=== PATIENT | male | born 1980 | race Caucasian/White ===

== ENCOUNTER 2023-02-28 08:29 | Inpatient (IN) | payer OTHER ==
[~2023-02-28] VITALS: Ht 170.2 cm; Wt 63.5 kg
[2023-02-28] MEDS ORDERED: ADENOSINE 3 MG/ML 2ML VIAL IV ONE (08:45)
[2023-02-28] MEDS ORDERED: AMIODARONE HCL 50MG/ML 3ML VIAL IV ONE (08:55)
[2023-02-28] MEDS ORDERED: AMIODARONE HCL 900 MG in DEXT 5% WATER 500 ML IV ONE (09:15)
[2023-02-28 09:16] LABS: BASOPHILS % 0.8 % (0.0-2.0); DIFFERENTIAL COMMENT 0; EOSINOPHILS % 1.8 % (0.0-5.0); HEMATOCRIT. 26.7 % (42.0-52.0); HEMOGLOBIN. 7.6 g/dL (14.0-18.0); LYMPHOCYTES % 20.5 % (20.0-50.0); MEAN CORPUSCULAR HEMOGLOBIN 21.6 pg (28.0-32.0); MEAN CORPUSCULAR HGB CONC 28.4 g/dL (31.0-37.0); MEAN CORPUSCULAR VOLUME 75.9 fL (80.0-94.0); MEAN PLATELET VOLUME 5.8 fl (7.4-10.4); MONOCYTES % 9.1 % (2.0-8.0); NEUTROPHILS % 67.8 % (40.0-76.0); PLATELET 964 x1000/uL (130-400); RED BLOOD CELL COUNT 3.52 mill/uL (4.7-6.1); RED CELL DISTRIBUTION WIDTH 19.4 % (11.6-14.6); WHITE BLOOD COUNT 13.7 x1000/uL (4.5-11.0)
[2023-02-28 09:44] LABS: ALANINE AMINOTRANSFERASE < 7 IU/L (10-49); ALBUMIN 3.1 g/dL (3.2-4.8); BILIRUBIN TOTAL 0.3 mg/dL (0.1-1.0); CALCIUM 8.5 mg/dL (8.7-10.4); CARBON DIOXIDE 24 mEq/L (21-32); CHLORIDE 103 mEq/L (98-107); CREATININE 0.7 mg/dL (0.6-1.3); GLUCOSE 113 mg/dL (70-105); POTASSIUM 3.6 mEq/L (3.5-5.1); SODIUM 137 mEq/L (136-145); UREA NITROGEN BLOOD 12 mg/dL (9-23)
[2023-02-28 09:52] LABS: ASPARTATE AMINOTRANSFERASE < 8 IU/L (<34)
[2023-02-28] MEDS ORDERED: NOREPINEPHRINE 8MG/250ML PMX 250 ML IV STA (11:09)
[2023-02-28] MEDS ORDERED: LIDOCAINE HCL 1% 10 MG/ML 10ML VIAL ONE ×2 (11:28→14:12)
[2023-02-28] MEDS ORDERED: DILTIAZEM HCL 5MG/ML 5ML VIAL IV ONE (11:45)
[2023-02-28] MEDS ORDERED: NOREPINEPHRINE 8MG/250ML PMX 250 ML IV PRN (20:17)
[2023-02-28] MEDS ORDERED: DOCUSATE SODIUM 100MG CAPSULE PO PRN (21:15)
[2023-02-28] MEDS ORDERED: ACETAMINOPHEN 325MG TABLET PO PRN ×2 (21:15)
[2023-02-28] MEDS ORDERED: CLONIDINE 0.1MG TABLET PO PRN (21:15)
[2023-02-28] MEDS ORDERED: ONDANSETRON HCL 4MG/2ML INJ IV PRN (21:15)
[2023-02-28] MEDS ORDERED: GUAIFENESIN 200MG/10ML SUGAR FREE UDC PO PRN (21:15)
[2023-02-28] MEDS ORDERED: HYDROCODONE/ACETAMINOPHEN 5/325MG TABLET PO PRN (21:15)
[2023-02-28] MEDS ORDERED: MAGNESIUM/ALUMINUM HYDROXIDE/SIMETHICONE 30ML UDC PO PRN (21:15)
[2023-02-28] MEDS ORDERED: PHENYLEPHRINE 50 MG in DEXT 5% WATER 245 ML IV PRN (21:15)
[2023-02-28] MEDS ORDERED: IPRATROPIUM/ALBUTEROL 0.5-3(2.5)MG/3ML NEB HHN PRN (21:15)
[2023-02-28] MEDS ORDERED: NALOXONE HCL 0.4MG/ML VIAL IV PRN (21:30)
[2023-02-28] MEDS ORDERED: PIPERACILLIN/TAZ 3.375G PREMIX 50 ML IV NR (22:00)
[2023-02-28] MEDS ORDERED: VANCOMYCIN 1.5GM/250ML IVPB 250 ML IV NR (22:00)
[2023-02-28 22:45] VITALS: BP 93/64; PULSE 85; RESP 21; TEMP 97.9
[2023-02-28 23:00] VITALS: BP 106/71; PULSE 88; RESP 19
[2023-02-28 23:15] VITALS: BP 91/54; PULSE 88; RESP 16
[2023-02-28 23:30] VITALS: BP 93/56; PULSE 78; RESP 19
[2023-02-28 23:42] LABS: TROPONIN I HIGH SENSITIVITY 47 ng/L (3.0-53)
[2023-02-28 23:45] VITALS: BP 111/72; PULSE 91; RESP 18
[2023-03-01] VITALS (86 sets, daily range): BP systolic 84–124; BP diastolic 46–81; PULSE 72–106; RESP 12–27; TEMP 97.2–98.2
[2023-03-01] MEDS: IRON SUCROSE COMPLEX 100 MG/5 ML ML IV NR ×2 (02:15→04:21)
[2023-03-01] MEDS ORDERED: AMIODARONE HCL 50MG/ML 9ML VIAL IV ONE (02:15)
[2023-03-01] MEDS ORDERED: AMIODARONE HCL 900 MG in DEXT 5% WATER 500 ML IV SCH (02:30)
[2023-03-01] MEDS: PIPERACILLIN/TAZOBACTAM 3.375 G in DEXTROSE 5% WATER 50 ML IV SCH ×5 (06:02→21:38)
[2023-03-01 06:17] LABS: INR 1.3; PROTHROMBIN TIME 13.3 sec (9.6-11.0)
[2023-03-01 06:21] LABS: BASOPHILS % 0.9 % (0.0-2.0); DIFFERENTIAL COMMENT 0; HEMATOCRIT. 23.3 % (42.0-52.0); LYMPHOCYTES % 16.7 % (20.0-50.0); MEAN CORPUSCULAR HEMOGLOBIN 22.2 pg (28.0-32.0); MEAN CORPUSCULAR HGB CONC 30.1 g/dL (31.0-37.0); MEAN CORPUSCULAR VOLUME 73.6 fL (80.0-94.0); MEAN PLATELET VOLUME 5.8 fl (7.4-10.4); MONOCYTES % 7.7 % (2.0-8.0); NEUTROPHILS % 71.7 % (40.0-76.0); PLATELET 900 x1000/uL (130-400); RED BLOOD CELL COUNT 3.16 mill/uL (4.7-6.1); RED CELL DISTRIBUTION WIDTH 19.4 % (11.6-14.6); WHITE BLOOD COUNT 12.3 x1000/uL (4.5-11.0)
[2023-03-01 06:49] LABS: ALANINE AMINOTRANSFERASE < 7 IU/L (10-49); ALBUMIN 2.8 g/dL (3.2-4.8); BILIRUBIN TOTAL 0.3 mg/dL (0.1-1.0); CALCIUM 8.4 mg/dL (8.7-10.4); CARBON DIOXIDE 27 mEq/L (21-32); CHLORIDE 102 mEq/L (98-107); CHOLESTEROL 96 mg/dL (<200); CREATININE 0.6 mg/dL (0.6-1.3); GLUCOSE 114 mg/dL (70-105); HDL CHOLESTEROL 22 mg/dL (>55); IRON 18 ug/dL (65-175); LDL CHOLESTEROL 67 mg/dL (5-100); POTASSIUM 3.5 mEq/L (3.5-5.1); SODIUM 137 mEq/L (136-145); T4 FREE 0.84 ng/dL (0.89-1.76); THYROID STIMULATING HORMONE 2.82 uIU/mL (0.55-4.78); TOTAL IRON BINDING CAPACITY 468 ug/dl (250-425); TRIGLYCERIDE 86 mg/dL (0-150); UREA NITROGEN BLOOD 10 mg/dL (9-23)
[2023-03-01 06:58] LABS: ASPARTATE AMINOTRANSFERASE < 8 IU/L (<34)
[2023-03-01] MEDS: FAMOTIDINE 20MG/2ML VIAL IV SCH ×2 (08:41→21:38)
[2023-03-01] MEDS: DEXT 5%/0.9% NACL 1,000 ML IV SCH ×2 (08:46)
[2023-03-01 08:49] LABS: FOLIC ACID (FOLATE) SERUM 5.62 ng/mL (>5.38); VITAMIN B12 SERUM 609 pg/mL (211-911)
[2023-03-01] MEDS ORDERED: AMIODARONE HCL 150 MG in DEXT 5% WATER 100 ML IV ONE (09:30)
[2023-03-01] MEDS ORDERED: AMIODARONE 150MG/100ML PREMIX 100 ML IV NR (09:30)
[2023-03-01 09:42] LABS: HEMOGLOBIN 7.1 g/dL (14.0-18.0)
[2023-03-01] MEDS ORDERED: VANCOMYCIN 1.25GM PMX (XELLIA) 250 ML IV SCH (11:00)
[2023-03-01] MEDS: SODIUM CHLORIDE 0.9% 1,000 ML IV SCH ×2 (11:24→21:38)
[2023-03-01] MEDS: IRON SUCROSE COMPLEX 100 MG/5 ML ML IV SCH (11:24)
[2023-03-01 12:32] LABS: T4 FREE 0.88 ng/dL (0.89-1.76)
[2023-03-01] MEDS: AMIODARONE HCL 200 MG TABLET PO SCH ×2 (12:55→16:49)
[2023-03-01] MEDS: MIDODRINE HCL 2.5MG TABLET PO SCH ×2 (12:55→16:50)
[2023-03-01] MEDS ORDERED: SODIUM CHLORIDE 0.9% 500 ML IV ONE (13:00)
[2023-03-01] MEDS ORDERED: VANCOMYCIN 1G PREMIX 200 ML IV SCH (14:00)
[2023-03-01 14:55] LABS: CLARITY URINE CLEAR (CLEAR); COLOR URINE YELLOW (YELLOW); GLUCOSE URINE NEGATIVE (NEGATIVE); KETONES URINE NEGATIVE (NEGATIVE); LEUKOCYTE ESTERASE URINE NEGATIVE (NEGATIVE); NITRITE URINE NEGATIVE (NEGATIVE); OCCULT BLOOD URINE NEGATIVE (NEGATIVE); PH URINE 5.5 (4.5-8.0); PROTEIN URINE NEGATIVE (NEGATIVE); SPECIFIC GRAVITY URINE 1.015 (1.005-1.030)
[2023-03-01 15:41] LABS: *AMPHETAMINES SCREEN URINE NEGATIVE (NEGATIVE); *BARBITURATES SCREEN URINE NEGATIVE (NEGATIVE); *BENZODIAZEPINES SCREEN URINE NEGATIVE (NEGATIVE); *COCAINE SCREEN URINE NEGATIVE (NEGATIVE); CANNABINOID URINE SCREEN NEGATIVE (NEGATIVE); ECSTASY MDMA SCREEN URINE NEGATIVE (NEGATIVE); METHADONE URINE SCREEN Neg (NEGATIVE); OPIATES URINE SCREEN NEGATIVE (NEGATIVE); PHENCYCLIDINE URINE SCREEN NEGATIVE (NEGATIVE)
[2023-03-01] MEDS: CHLORHEXIDINE GLUCONATE 4% EXTERNAL USE TOP SCH ×2 (16:50→21:39)
[2023-03-01] MEDS ORDERED: AMIODARONE HCL 200 MG TABLET PO SCH (17:00)
[2023-03-01] MEDS ORDERED: INFLUENZA VACCINE 05/PF 0.5 ML SYRINGE IM ONE (21:00)
[2023-03-01 22:33] LABS: BILIRUBIN TOTAL 0.2 mg/dL (0.1-1.0)
[2023-03-01 22:40] LABS: BILIRUBIN DIRECT < 0.1 mg/dL (<=3.0)
[2023-03-02] VITALS (71 sets, daily range): BP systolic 85–114; BP diastolic 49–85; PULSE 68–100; RESP 11–28; TEMP 97.8–98.7; O2SAT 98
[2023-03-02] MEDS: PIPERACILLIN/TAZOBACTAM 3.375 G in DEXTROSE 5% WATER 50 ML IV SCH ×2 (05:44→13:28)
[2023-03-02] MEDS: CHLORHEXIDINE GLUCONATE 4% EXTERNAL USE TOP SCH ×3 (05:44→18:32)
[2023-03-02 06:58] LABS: CALCIUM 8.5 mg/dL (8.7-10.4); CARBON DIOXIDE 25 mEq/L (21-32); CHLORIDE 108 mEq/L (98-107); CREATININE 0.5 mg/dL (0.6-1.3); GLUCOSE 78 mg/dL (70-105); POTASSIUM 3.5 mEq/L (3.5-5.1); SODIUM 141 mEq/L (136-145); UREA NITROGEN BLOOD 6 mg/dL (9-23)
[2023-03-02] MEDS: SODIUM CHLORIDE 0.9% 1,000 ML IV SCH ×2 (07:56→18:32)
[2023-03-02] MEDS: AMIODARONE HCL 200 MG TABLET PO SCH ×3 (07:56→16:44)
[2023-03-02] MEDS: MIDODRINE HCL 2.5MG TABLET PO SCH ×3 (07:56→16:45)
[2023-03-02] MEDS: FAMOTIDINE 20MG/2ML VIAL IV SCH (07:56)
[2023-03-02 08:19] LABS: BASOPHILS % 1.1 % (0.0-2.0); DIFFERENTIAL COMMENT 0; EOSINOPHILS % 5.7 % (0.0-5.0); HEMATOCRIT. 24.5 % (42.0-52.0); HEMOGLOBIN. 7.2 g/dL (14.0-18.0); LYMPHOCYTES % 22.2 % (20.0-50.0); MEAN CORPUSCULAR HEMOGLOBIN 22.5 pg (28.0-32.0); MEAN CORPUSCULAR HGB CONC 29.5 g/dL (31.0-37.0); MEAN CORPUSCULAR VOLUME 76.4 fL (80.0-94.0); MEAN PLATELET VOLUME 5.9 fl (7.4-10.4); MONOCYTES % 9.9 % (2.0-8.0); NEUTROPHILS % 61.1 % (40.0-76.0); PLATELET 723 x1000/uL (130-400); RED BLOOD CELL COUNT 3.21 mill/uL (4.7-6.1); WHITE BLOOD COUNT 7.6 x1000/uL (4.5-11.0)
[2023-03-02] MEDS: IRON SUCROSE COMPLEX 100 MG/5 ML ML IV SCH (11:52)
[2023-03-02] MEDS ORDERED: DOXYCYCLINE HYCLATE 100MG CAPSULE PO SCH ×2 (18:15)
== END 2023-03-02 19:00 | disposition short-term general hospital (02) | DRG 871 ==
LOC: ER 08:29 → EDBEDREQTM 11:53 → EDBEDREQ 11:53 → MICUSO 17:08
PROVIDERS: ADMIT Hospitalist; ATTEND Hospitalist
PROC: 02HV33Z Insertion of Infusion Device into Superior Vena Cava, Percutaneous Approach (ICD-10-PCS; principal; 2023-02-28)
PROC: B548ZZA Ultrasonography of Superior Vena Cava, Guidance (ICD-10-PCS; 2023-02-28)
DX: A41.9 Sepsis, unspecified organism (principal); R65.21 Severe sepsis with septic shock; I47.19 Other supraventricular tachycardia; E44.0 Moderate protein-calorie malnutrition; L73.2 Hidradenitis suppurativa; D75.838 Other thrombocytosis; D50.9 Iron deficiency anemia, unspecified; E86.1 Hypovolemia; I34.1 Nonrheumatic mitral (valve) prolapse; Z79.899 Other long term (current) drug therapy; Z68.21 Body mass index [BMI] 21.0-21.9, adult
CPT/HCPCS: 36415; 36573; 71045; 80048; 80053; 80061; 80202; 80305; 81003; 82247; 82248; 82607; 82746; 83540; 83550; 83880; 84145; 84439; 84443; 84481; 84484; 85014; 85018; 85025; 85379; 85651; 86850; 86900; 86920; 90686; 93005; 93306; 93970; 97162; 97166; 99291; C1725; J0153; J0282; J2370; J2543; J3370; J3490; J7030; J7060